=== PATIENT | female | born 1965 | race Caucasian/White ===

== ENCOUNTER → 2016-09-10 | Outpatient (CLI) | payer BC ==
[~2016-09-10] MED LIST: IBUPROFEN400 MG PO; PERCOCET 325 MG1 TA2 PO
== END ==
LOC: MC.RAD 15:38
DX: Z12.31 Encounter for screening mammogram for malignant neoplasm of breast (principal)

== ENCOUNTER → 2017-11-04 | Outpatient (CLI) | payer BC | LOC: MC.RAD 10:52 | DX: Z12.31 Encounter for screening mammogram for malignant neoplasm of breast (principal) ==

== ENCOUNTER → 2018-12-04 | Outpatient (CLI) | payer BC | LOC: COL.RAD 11:42 | DX: M25.572 Pain in left ankle and joints of left foot (principal) ==

== ENCOUNTER → 2019-01-06 | Outpatient (CLI) | payer BC | LOC: MC.RAD 11:24 | DX: Z12.31 Encounter for screening mammogram for malignant neoplasm of breast (principal) ==

== ENCOUNTER → 2020-02-10 | Outpatient (CLI) | payer BC | LOC: ZCOL.LAB 14:19 | DX: J02.9 Acute pharyngitis, unspecified (principal); Z20.828 Contact with and (suspected) exposure to other viral communicable diseases ==

== ENCOUNTER 2020-04-02 03:40 | Emergency (ER) | payer BC ==
[~2020-04-02] VITALS: Ht 180.3 cm; Wt 95.5 kg
[2020-04-02 03:44] VITALS: TEMP 97.6
[2020-04-02 04:02] LABS: BASO # 0.1 (0.0-0.2); BASO % 0.8 % (0.0-2.0); EOS # 0.1 (0.0-0.7); EOS % 1.5 % (0-4.0); GRAN # 4.3 (1.4-6.5); HEMATOCRIT 43.3 % (37.0-47.0); HEMOGLOBIN 14.4 g/dl (12.5-16.0); LYMPH # 4.1 (1.2-3.4); LYMPH % 43.6 % (20.0-51.0); MEAN CELL VOLUME 92 fl (80.0-100.0); MEAN CORPUSCULAR HEMOGLOBIN 30 pg (27.0-31.0); MEAN CORPUSCULAR HGB CONC 33 g/dl (33.0-37.0); MEAN PLATELET VOLUME 9.4 fl (7.4-10.4); MONO # 0.8 (0.1-0.6); MONO % 8.9 % (1.7-9.3); PLATELET COUNT 240 K/mm3 (130-400); RED BLOOD COUNT 4.73 M/mm3 (4.10-5.30); REDCELL DISTRIBUTION WIDTH-CV 12.4 % (11.5-14.5)
[2020-04-02 04:10] LABS: PROTHROMBIN TIME 11.6 SECONDS (9.7-12.8)
[2020-04-02 04:17] LABS: ALANINE AMINOTRANSFERASE 15 U/L (4-34); ALBUMIN 4.7 gm/dL (3.5-5.0); ALKALINE PHOSPHATASE 100 U/L (50-136); ANION GAP 11 mmol/L (7-16); AST,SGOT 26 U/L (15-37); BILIRUBIN,TOTAL 0.7 mg/dL (0.0-1.0); BLOOD UREA NITROGEN 25 mg/dL (7-17); CALCIUM 9.6 mg/dL (8.4-10.2); CARBON DIOXIDE 24 mmol/L (22-30); CHLORIDE 105 mmol/L (98-107); CREATININE, serum 0.81 (0.52-1.25); GLUCOSE 105 mg/dL (74-106); LIPASE 94 U/L (23-300); POTASSIUM 3.5 mmol/L (3.4-5.0); SODIUM 140 mmol/L (137-145); TOTAL PROTEIN 8.4 gm/dL (6.4-8.2)
[2020-04-02 04:23] LABS: D-DIMER < 200.00 ng/mLDDu (200-230)
[2020-04-02 04:47] LABS: TROPONIN-I < 0.012 ng/mL (0.000-0.035)
[2020-04-02 09:04] VITALS: BP 127/72; PULSE 64
== END 2020-04-02 09:04 | disposition home or self-care (01) ==
LOC: COL.ER 03:40
PROVIDERS: Emergency Medicine
DX: R07.89 Other chest pain (principal); Z90.710 Acquired absence of both cervix and uterus
CPT/HCPCS: J7030

== ENCOUNTER → 2020-05-02 | Outpatient (CLI) | payer BC | LOC: MC.RAD 04-11 13:30 | DX: Z12.31 Encounter for screening mammogram for malignant neoplasm of breast (principal) ==

== ENCOUNTER 2020-05-17 12:01 | Day surgery (SDC) | payer BC ==
[~2020-05-17] VITALS: Ht 180.3 cm; Wt 93.1 kg
[2020-05-17] VITALS (9 sets, daily range): BP systolic 117–141; BP diastolic 60–72; PULSE 48–64; TEMP 98.1
[2020-05-17] MEDS ORDERED: ASPIRIN E.C. 8181 MG PO (12:27)
[2020-05-17] MEDS ORDERED: NITROSTAT0.4 MG/TAB SL (12:27)
[2020-05-17] MEDS ORDERED: TOPROL XL 25MG25 MG PO (12:28)
[2020-05-17] MEDS ORDERED: LEXAPRO 10MG10 MG PO (12:29)
[2020-05-17] MEDS ORDERED: PROTONIX20 MG PO (12:30)
[2020-05-17] MEDS ORDERED: ATARAX 25MG25 MG/TAB PO (12:31)
[2020-05-17 14:16] LABS: HEMATOCRIT 39.8 % (37.0-47.0); HEMOGLOBIN 13.5 g/dl (12.5-16.0); MEAN CELL VOLUME 92 fl (80.0-100.0); MEAN CORPUSCULAR HEMOGLOBIN 31 pg (27.0-31.0); MEAN CORPUSCULAR HGB CONC 34 g/dl (33.0-37.0); MEAN PLATELET VOLUME 9.7 fl (7.4-10.4); PLATELET COUNT 232 K/mm3 (130-400); RED BLOOD COUNT 4.34 M/mm3 (4.10-5.30); REDCELL DISTRIBUTION WIDTH-CV 12.2 % (11.5-14.5)
[2020-05-17 14:21] LABS: INR 1.2 (0.8-3.0); PROTHROMBIN TIME 13.6 SECONDS (9.7-12.8)
[2020-05-17 14:28] LABS: CALCIUM 9.5 mg/dL (8.4-10.2); CREATININE, serum 0.77 (0.52-1.25)
--- NOTE | 2020-05-17 15:02 | NUR ---
SEE MERGE DOCUMENTATION FOR MEDICATION ADMINISTRATION TIMES AND INTRA/POST PROCEDURE SEDATION ASSESSMENTS. RIGHT HAND BARBEAU TEST POSITIVE.
--- NOTE | 2020-05-17 15:36 | NUR ---
Report from Vincent SANTOS. Transferred from [employer] by bed. Right wrist Tband with 15 cc air CD&I, good pulses and cap refill < 3 secs noted. VSS. Denies pain and needs. bedside
--- NOTE | 2020-05-17 17:45 | NUR ---
15 cc air out of right Tband and pressure dressing applied. INT discontinued intact. Discharge instructions given. ambulated with pt to private car
== END 2020-05-17 17:45 | disposition home or self-care (01) ==
LOC: COL.CAR 12:01
PROVIDERS: Internal Medicine Cardiovascular Disease
DX: R07.9 Chest pain, unspecified (principal); I34.0 Nonrheumatic mitral (valve) insufficiency; Z20.828 Contact with and (suspected) exposure to other viral communicable diseases
CPT/HCPCS: J1644; J2250; J3010; Q9967

== ENCOUNTER → 2021-05-03 | Outpatient (CLI) | payer BC ==
[~2021-05-03] MED LIST changes: +ASPIRIN E.C. 8181 MG PO; +ATARAX 25MG25 MG/TAB PO; +LEXAPRO 10MG10 MG PO; +NITROSTAT0.4 MG/TAB SL; +PROTONIX20 MG PO; +TOPROL XL 25MG25 MG PO
== END ==
LOC: MC.RAD 08:15
DX: Z12.31 Encounter for screening mammogram for malignant neoplasm of breast (principal)

== ENCOUNTER → 2023-05-19 | Outpatient (CLI) | payer BC | LOC: MC.RAD 09:14 → COL.RAD 09:14 | DX: Z12.31 Encounter for screening mammogram for malignant neoplasm of breast (principal) ==